=== PATIENT | male | born 1935 | race Two or more races ===

== ENCOUNTER 2022-03-07 10:13 | Inpatient (IN) | payer OTHER ==
[~2022-03-07] VITALS: Ht 175.3 cm; Wt 68.0 kg
[2022-03-07] MEDS ORDERED: HORIZANT300 MG PO (10:29)
[2022-03-07] MEDS ORDERED: ASA81 MG PO (10:29)
[2022-03-07] MEDS ORDERED: TENORMIN25 MG PO (10:29)
[2022-03-07] MEDS ORDERED: RESTORIL15 M1 PO (10:30)
--- NOTE | 2022-03-07 10:30 | NUR ---
SE RECIBE PACIENTE ALERTA, EN AMBULANCIA ACOMPANADO DE FAMILIAR Y PARA MEDICO Y LOS CUALES REFIEREN TRAER POR DIFICULTAD RESPIRATORIA Y POR QUE NO COME POR NO PODRE TRAGAR. PTE EN HOGAR SUSTITUTO. SE ESTIMAN S/V SATURACION POR OXIMETRIA DE PULSO 91%. SE REALIZA EKG , SE PRESENTA A . SE UBICA EN AREA DE OBSERVACION NEID # [id number], CON BARRANDAS ELEVADAS A NIVEL MAS BAJO.
--- NOTE | 2022-03-07 11:48 | NUR ---
PTE EVALUADO POR EL DR BLACKMAN, QUIEN ORDENA EL [place]. MS L WARREN ORIENTA SOBRE EL [place] ORDENADO, LO CUAL REFIERE ENTENDER FAMILIAR, REALIZA PRUEBAS DE LABORATORIO Y ADMINISTRA MEDICAMENTO BERNA ORDEN MEDICA Y SIGUIENDO MEDIDAS ASEPTICAS.
== END 2022-03-18 15:31 | disposition home or self-care (01) | DRG 56 ==
LOC: ER 10:13 → SURH 13:00
PROVIDERS: ADMIT Surgery; ATTEND Surgery
PROC: B020ZZZ Computerized Tomography (CT Scan) of Brain (ICD-10-PCS; 2022-03-07)
PROC: 3E0F7SF Introduction of Other Gas into Respiratory Tract, Via Natural or Artificial Opening (ICD-10-PCS; 2022-03-07)
PROC: 02HV33Z Insertion of Infusion Device into Superior Vena Cava, Percutaneous Approach (ICD-10-PCS; 2022-03-08)
PROC: 3E0F7GC Introduction of Other Therapeutic Substance into Respiratory Tract, Via Natural or Artificial Opening (ICD-10-PCS; 2022-03-08)
PROC: 3E0436Z Introduction of Nutritional Substance into Central Vein, Percutaneous Approach (ICD-10-PCS; 2022-03-08)
PROC: BW24ZZZ Computerized Tomography (CT Scan) of Chest and Abdomen (ICD-10-PCS; 2022-03-10)
PROC: 0DH63UZ Insertion of Feeding Device into Stomach, Percutaneous Approach (ICD-10-PCS; principal; 2022-03-11)
PROC: 0DP68UZ Removal of Feeding Device from Stomach, Via Natural or Artificial Opening Endoscopic (ICD-10-PCS; 2022-03-11)
PROC: 3E0G76Z Introduction of Nutritional Substance into Upper GI, Via Natural or Artificial Opening (ICD-10-PCS; 2022-03-11)
PROC: 0HD6XZZ Extraction of Back Skin, External Approach (ICD-10-PCS; 2022-03-12)
DX: G30.9 Alzheimer's disease, unspecified (principal); J15.8 Pneumonia due to other specified bacteria; B37.89 Other sites of candidiasis; E87.0 Hyperosmolality and hypernatremia; E46 Unspecified protein-calorie malnutrition; N39.0 Urinary tract infection, site not specified; Z43.1 Encounter for attention to gastrostomy; F50.89 Other specified eating disorder; F02.80 Dementia in other diseases classified elsewhere, unspecified severity, without behavioral disturbance, psychotic disturbance, mood disturbance, and anxiety; R13.10 Dysphagia, unspecified; L89.152 Pressure ulcer of sacral region, stage 2; L08.89 Other specified local infections of the skin and subcutaneous tissue; B95.61 Methicillin susceptible Staphylococcus aureus infection as the cause of diseases classified elsewhere; B96.89 Other specified bacterial agents as the cause of diseases classified elsewhere; R09.02 Hypoxemia; E86.0 Dehydration; D64.9 Anemia, unspecified; G20 Parkinson's disease; I25.10 Atherosclerotic heart disease of native coronary artery without angina pectoris; I13.10 Hypertensive heart and chronic kidney disease without heart failure, with stage 1 through stage 4 chronic kidney disease, or unspecified chronic kidney disease; N18.30 Chronic kidney disease, stage 3 unspecified; R63.39 Other feeding difficulties; Z98.61 Coronary angioplasty status; Z74.01 Bed confinement status; Z87.891 Personal history of nicotine dependence; Z86.16 Personal history of COVID-19; Z68.22 Body mass index [BMI] 22.0-22.9, adult